=== PATIENT | female | born 1980 | race Caucasian/White ===

== ENCOUNTER 2019-07-09 11:41 | Emergency (ER) | payer OTHER ==
[~2019-07-09] VITALS: Ht 175 cm; Wt 114.0 kg
[~2019-07-09 11:41] MED LIST: ESTR1PAT53 TOP; MULT-974 PO
[2019-07-09] MEDS ORDERED: CYCLOBENZAPRINE 10 MG (FLEXERIL) TAB PO STA (12:29)
--- NOTE | 2019-07-09 12:45 | NUR ---
VALENTIN IN ROOM TALKING WITH PT AGAIN.
[2019-07-09] MEDS ORDERED: oxyCODONE/APAP 5/325MG (PERCOCET 5) TABLET PO ONE (13:00)
[2019-07-09] MEDS ORDERED: CYCL10TA9 PO (13:05)
[2019-07-09] MEDS ORDERED: PRD20T PO (13:05)
--- NOTE | 2019-07-09 13:05 | ED Back Pain ---
General Chief Complaint: Back Problems Stated Complaint: BACK PAIN Nursing Triage Note: LOWER BACK PAIN STARTING YESTEDAY. DENIES INJURY. STATES SHE TOOK X3 IBUPROFEN AND X2 TYLENOL AT 0830 TODAY. Nursing Sepsis Screen: No Definite Risk History of Present Illness Date Seen by Provider: Jul 09, 2019 Time Seen by Provider: 12:00 Initial Comments 39-year-old female presents for low back pain. She does not have specific injury. However 2 days ago she did 12+ hours of cooking and reports one incident when she twisted and felt a twinge in her low back. She denies any previous history of lumbar spine problems. She denies any paresthesias in her lower extremities or any bowel or bladder incontinence or retention. She took 4 Aleve last night before bed and took Tylenol and ibuprofen this morning with no relief in her symptoms. Location: Lumbar Spine, Paraspinous Muscles Timing/Duration: 1-2 Days Severity: Moderate Pain/Injury Location: Back Method of Injury: Unknown Associated Symptoms: muscle spasms; No numbness in legs/feet, No tingling in legs/feet, No sensory/motor loss; lower back pain; No loss of bladder control, No loss of bowel control Allergies and Home Medications Allergies Coded Allergies: No Known Drug Allergies (Unverified , 10/24/15) Home Medications Cyclobenzaprine HCl 10 Mg Tablet, 10 MG PO Q8H PRN for SPASMS Prescribed by: VALENTIN GARCIA on 07/09/19 1304 Estradiol 1 Each Patch.tdwk, 1 EACH TOP TWICE WEEKLY, (Reported) Multivitamin 1 Each Tablet, 1 EACH PO DAILY, (Reported) Prednisone 20 Mg Tab, 20 MG PO DAILY Take 3 tablets once daily for 3 days. Take 2 tablets once daily for 3 days, take one tablet once daily for 3 days. Prescribed by: VALENTIN GARCIA on 07/09/19 1849 Patient Home Medication List Home Medication List Reviewed: Yes Review of Systems Constitutional: no symptoms reported, see HPI Musculoskeletal: see HPI, back pain, muscle pain, muscle twitching All Other Systems Reviewed Negative Unless Noted: Yes Past Yzjkltg-Lgojmu-Zbddyq Hx Past Med/Social Hx: Reviewed Nursing Past Med/Soc Hx Patient Social History Alcohol Use: Denies Use Recreational Drug Use: No Smoking Status: Never a Smoker Recent Foreign Travel: No Contact w/Someone Who Travel: No Recent Infectious Disease Expo: No Past Medical History Surgeries: Yes (ABLATION, EXPLORATORY LAP, umb hernia, ) Hysterectomy, Tubal Ligation Respiratory: No (ASTHMA CHILD) Cardiac: No Neurological: No : No Female Reproductive Disorders: Endometriosis [employer] History: Hysterectomy Gastrointestinal: No Musculoskeletal: No Endocrine: No Cancer: No Psychosocial: No Integumentary: No Blood Disorders: No Physical Exam Vital Signs Vital Signs - First Documented 07/09/19 11:49 Temp 36.7 Pulse 67 Resp 16 B/P (MAP) 152/85 (107) Pulse Ox 98 O2 Delivery Room Air Capillary Refill : Less Than 3 Seconds Height, Weight, BMI Height: 5'9.00" Weight: 275lbs. oz. 124.995974kg; 37.00 BMI Method: General Appearance: No Apparent Distress, WD/WN Neck: Full Range of Motion, Normal Inspection, Non Tender, Supple Cardiovascular: Regular Rate, Rhythm, No Murmur, Normal Peripheral Pulses Respiratory: Chest Non Tender, Lungs Clear, Normal Breath Sounds Back: Normal Inspection; No CVA Tenderness (L), No CVA Tenderness (R); Decreased Range of Motion (secondary to pain), Muscle Spasm (lumbar), Vertebral Tenderness (lower lumbar), Other (able to ambulate with an antalgic but steady gait. Able to rise on to her toes and heels. PowerV/V L4-S1. Pain in low back, with L4 testing bilat LEs. Neg SLR. ) Extremity: Normal Capillary Refill, Normal Inspection, Normal Range of Motion Neurologic/Psychiatric: Alert, Oriented x3, No Motor/Sensory Deficits, Normal Mood/Affect Skin: Normal Color, Warm/Dry Lymphatic: No Adenopathy Progress/Results/Core Measures Results/Orders My Orders Orders - VALENTIN GARCIA Cyclobenzaprine Tablet (Flexeril Tablet) (07/09/19 12:29) Oxycodone/Apap 5/325mg Tablet (Percocet (07/09/19 13:00) Medications Given in ED Current Medications Medications Dose Ordered Sig/Som Route Start Time Stop Time Status Last Admin Dose Admin Oxycodone/ Acetaminophen 1 tab ONCE ONCE PO 07/09/19 13:00 07/09/19 13:01 DC 07/09/19 12:57 1 TAB Vital Signs/I&O 07/09/19 11:49 Temp 36.7 Pulse 67 Resp 16 B/P (MAP) 152/85 (107) Pulse Ox 98 O2 Delivery Room Air Blood Pressure Mean: 107 Progress Progress Note : Time: 12:00 Progress Note Patient seen and evaluated, recommended Flexeril for muscle spasms. Ice pack to low back. Patient states that she's not had improvement in her pain in the past with Tramadol or hydrocodone. Patient reports pain control with Percocet after previous surgeries. Patient requesting MRI, explained that she has no assessment findings to require an MRI at this time. We will try conservative treatment and if this does not work or her symptoms worsen, she may need to see her PCP for an MRI. 1300 Patient reports trace improvement, no worsening of her symptoms. Discharge instructions and return precautions reviewed with her. Departure Impression Primary Impression: Back pain Qualified Codes: M54.5 - Low back pain Additional Impression: Lumbar strain Qualified Codes: S39.012A - Strain of muscle, fascia and tendon of lower back, initial encounter Disposition: 01 HOME, SELF-CARE Condition: Improved Departure-Patient Inst. Decision time for Depature: 13:15 Referrals: VALENTINO TURCIOS MD (PCP/Family) Primary Care Physician Patient Instructions: Lumbar Muscle Strain (DC), Low Back Pain (DC) Add. Discharge Instructions: Rest, ambulate as tolerating. Limit siting and standing. Take your medications as prescribed. You may alternate between Tylenol 650 mg and ibuprofen 600 mg every 4 hours. Follow-up with your primary care provider if symptoms are not improving or worsen. Alternate heat and ice to low back. You can continue to use Biofreeze or he may try [place] balm. Consider evaluation by your chiropractor. Return to emergency department for new, urgent health care needs. All discharge instructions reviewed with patient and/or family. Voiced understanding. Scripts Cyclobenzaprine HCl (Cyclobenzaprine HCl) 10 Mg Tablet 10 MG PO Q8H PRN for SPASMS, #15 TAB 0 Refills Prov: VALENTIN GARCIA 07/09/19 Prednisone (Prednisone) 20 Mg Tab 20 MG PO DAILY, #18 TAB 0 Refills Take 3 tablets once daily for 3 days. Take 2 tablets once daily for 3 days, take one tablet once daily for 3 days. Prov: VALENTIN GARCIA 07/09/19 Copy Copies To 1: VALENTINO TURCIOS MD, AMY ARNP Jul 09, 2019 13:05
[2019-07-09 13:22] VITALS: BP 152/85
== END 2019-07-09 13:22 | disposition home or self-care (01) ==
LOC: EDUNIT# 11:41 → ER 11:42
DX: S39.012A Strain of muscle, fascia and tendon of lower back, initial encounter (principal); J45.909 Unspecified asthma, uncomplicated; Z79.52 Long term (current) use of systemic steroids; Z90.710 Acquired absence of both cervix and uterus; Z98.51 Tubal ligation status; X50.1XXA Overexertion from prolonged static or awkward postures, initial encounter
CPT/HCPCS: 99283

== ENCOUNTER → 2020-03-27 | Outpatient (CLI) | payer OTHER ==
[~2020-03-27] MED LIST changes: +CYCL10TA9 PO; +PRD20T PO
--- NOTE | 2020-03-27 19:51 | Diagnostic Imaging Report ---
EXAMINATION: Left foot radiographs, 3 views. Right foot radiographs, 3 views. COMPARISON: November 30, 2007. HISTORY: 39-year-old female, bilateral foot pain. 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 The joint spaces are well preserved. There is no acute fracture. There is no cortical or aggressive bone destruction. There is no periosteal reaction. IMPRESSION: Unremarkable radiographs of the right and left feet. Dictated by: Dictated on workstation # [id number]
== END ==
LOC: RAD 17:03
PROVIDERS: ATTEND Family Medicine
DX: M79.671 Pain in right foot (principal); M79.672 Pain in left foot; R26.2 Difficulty in walking, not elsewhere classified

== ENCOUNTER → 2021-03-19 | Outpatient (CLI) | payer OTHER | LOC: LABNPT 06:25 | PROVIDERS: ATTEND Podiatrist | DX: Z01.812 Encounter for preprocedural laboratory examination (principal); Z20.822 Contact with and (suspected) exposure to COVID-19 | CPT/HCPCS: 87635 ==

== ENCOUNTER → 2021-09-12 | Outpatient (CLI) | payer OTHER ==
[~2021-09-12] MED LIST changes: +CYCL10TA25 PO; -CYCL10TA9 PO
== END ==
LOC: LABNPT 05:57
PROVIDERS: ATTEND Podiatrist
DX: Z01.812 Encounter for preprocedural laboratory examination (principal); Z20.822 Contact with and (suspected) exposure to COVID-19
CPT/HCPCS: 87635